=== PATIENT | male | born 1965 | race Native Hawaiian/Other Pacific Islander ===

== ENCOUNTER 2019-06-02 00:20 | Emergency (ER) | payer OTHER ==
[~2019-06-02] VITALS: Ht 170.2 cm; Wt 127.9 kg
[2019-06-02 00:20] VITALS: BP 99/64; TEMP 97.3
[2019-06-02 00:59] LABS: PLATELET COUNT 153 K/uL (142-355)
[2019-06-02 01:10] LABS: POTASSIUM 4.3 mmol/L (3.6-5.2)
[2019-06-02] MEDS ORDERED: ABILIFY20 MG PO (11:55)
[2019-06-02] MEDS ORDERED: ADULT ASPIRIN R81 MG PO (11:56)
[2019-06-02] MEDS ORDERED: MUPI2OIN2 TOP (11:56)
[2019-06-02] MEDS ORDERED: DIPH50CA30 PO (11:57)
[2019-06-02] MEDS ORDERED: CYCLOBENZAPRINE5 MG PO (11:58)
[2019-06-02] MEDS ORDERED: VENLAFAXINE75 M2 PO (11:59)
[2019-06-02] MEDS ORDERED: GABA400C2 PO (12:00)
[2019-06-02] MEDS ORDERED: CLON1TAB18 PO (12:01)
[2019-06-02] MEDS ORDERED: HYDR5TAB9 PO (12:01)
[2019-06-02] MEDS ORDERED: LIPITOR20 MG PO (12:02)
[2019-06-02] MEDS ORDERED: LEXAPRO20 MG PO (12:02)
[2019-06-02] MEDS ORDERED: MAGNSUS68 PO (12:03)
[2019-06-02] MEDS ORDERED: METOPROLOL25 M1 PO (12:04)
[2019-06-02] MEDS ORDERED: MUCINEX600 MG PO (12:05)
[2019-06-02] MEDS ORDERED: MYLANT3 PO (12:06)
[2019-06-02] MEDS ORDERED: PHENOBARB60 MG PO (12:07)
[2019-06-02] MEDS ORDERED: CLOP75TA2 PO (12:08)
[2019-06-02] MEDS ORDERED: PANTOPRAZOLE 40MG TA PO (12:09)
[2019-06-02] MEDS ORDERED: EFFER-K20 MEQ PO (12:09)
[2019-06-02] MEDS ORDERED: RISP2TAB2 PO (12:10)
[2019-06-02] MEDS ORDERED: SALINE NASAL0.65 % NAS (12:11)
[2019-06-02] MEDS ORDERED: SENOKOT8.6 MG PO (12:11)
[2019-06-02] MEDS ORDERED: LEVO0.0529 PO (12:13)
[2019-06-02] MEDS ORDERED: BENZONATATE100 MG PO (12:14)
[2019-06-02] MEDS ORDERED: [UNRECOGNIZED DRUG - OTHER] MT (12:14)
[2019-06-02] MEDS ORDERED: TRAZ50TA36 PO (12:15)
[2019-06-02] MEDS ORDERED: TYLENOL325 MG PO (12:16)
[2019-06-02] MEDS ORDERED: VIMPAT200 M1 PO (12:17)
[2019-06-02] MEDS ORDERED: WELLBUTRIN200 MG PO (12:18)
== END 2019-06-02 01:40 | disposition other institution (70) ==
LOC: ED 00:20
PROVIDERS: Family Medicine
DX: F22 Delusional disorders (principal); Z72.89 Other problems related to lifestyle; Z04.6 Encounter for general psychiatric examination, requested by authority
CPT/HCPCS: 36415; 80053; 81000; 85027; 93005; 99283; 99285

== ENCOUNTER 2019-06-07 13:39 | Observation (INO) | payer OTHER ==
[2019-06-07] VITALS (10 sets, daily range): BP systolic 114–158; BP diastolic 77–94; TEMP 97.5–98; Ht 170.2 cm; Wt 124.9 kg
[~2019-06-07] VITALS: Ht 170.2 cm; Wt 124.9 kg
[~2019-06-07 13:39] MED LIST: ABILIFY20 MG PO; ADULT ASPIRIN R81 MG PO; BENZONATATE100 MG PO; CLON1TAB18 PO; CLOP75TA2 PO; CYCLOBENZAPRINE5 MG PO; DIPH50CA30 PO; EFFER-K20 MEQ PO; GABA400C2 PO; HYDR5TAB9 PO; LEVO0.0529 PO; LEXAPRO20 MG PO; LIPITOR20 MG PO; MAGNSUS68 PO; METOPROLOL25 M1 PO; MUCINEX600 MG PO; MUPI2OIN2 TOP; MYLANT3 PO; PANTOPRAZOLE 40MG TA PO; PHENOBARB60 MG PO; RISP2TAB2 PO; SALINE NASAL0.65 % NAS; SENOKOT8.6 MG PO; TRAZ50TA36 PO; TYLENOL325 MG PO; VENLAFAXINE75 M2 PO; VIMPAT200 M1 PO; WELLBUTRIN200 MG PO; [UNRECOGNIZED DRUG - OTHER] MT
[2019-06-07 14:17] LABS: PLATELET COUNT 253 K/uL (142-355)
[2019-06-07 14:26] LABS: POTASSIUM 4.2 mmol/L (3.6-5.2); SODIUM 138 mmol/L (136-145)
[2019-06-07 16:48] LABS: PARTIAL THROMBOPLASTIN TIME 22.3 SECONDS (24.5-33.6)
[2019-06-07] MEDS ORDERED: NITR100C56 PO (21:27)
[2019-06-07] MEDS ORDERED: CLON1TAB18 PO (21:28)
[2019-06-07] MEDS ORDERED: DIVALPROEX500 MG PO (21:28)
[2019-06-07] MEDS ORDERED: FLUOXETINE20 MG PO (21:28)
[2019-06-07] MEDS ORDERED: CHOL100034 PO (21:29)
[2019-06-07] MEDS ORDERED: CLON0.5T36 PO (21:29)
[2019-06-07] MEDS ORDERED: ABILIFY MYCITE10 MG PO (21:30)
[2019-06-08] VITALS (15 sets, daily range): BP systolic 132–192; BP diastolic 71–90; TEMP 98.5–99.3
[2019-06-08 10:46] LABS: PLATELET COUNT 234 K/uL (142-355)
[2019-06-08] MEDS ORDERED: 904272561 PO (14:31)
[2019-06-11] MEDS ORDERED: 904272561 PO (08:48)
[2019-06-11] MEDS ORDERED: LITH300C3 PO (08:49)
[2019-06-11] MEDS ORDERED: FLUOXETINE20 MG PO (08:50)
[2019-06-11] MEDS ORDERED: GABA300C2 PO (08:50)
[2019-06-11] MEDS ORDERED: CLON1TAB18 PO (08:51)
[2019-06-11] MEDS ORDERED: CLON0.5T36 PO (08:51)
[2019-06-11] MEDS ORDERED: DIVALPROEX500 MG PO (08:51)
[2019-06-11] MEDS ORDERED: CYCL10TA35 PO (08:51)
[2019-06-11] MEDS ORDERED: CHOL100034 PO (08:52)
[2019-06-11] MEDS ORDERED: ABILIFY MYCITE10 MG PO (08:52)
[2019-06-11] MEDS ORDERED: PHEN30TA PO (08:54)
== END 2019-06-08 16:35 | disposition other institution (70) ==
LOC: ED 13:39 → ICU 15:20 → ED 15:20 → ICU 23:37
PROVIDERS: Internal Medicine; ADMIT Hospitalist
DX: R41.82 Altered mental status, unspecified (principal); G40.802 Other epilepsy, not intractable, without status epilepticus; I10 Essential (primary) hypertension; D72.828 Other elevated white blood cell count; R09.02 Hypoxemia
CPT/HCPCS: 36415; 36600; 51702; 80053; 80184; 81000; 82550; 82805; 83605; 83880; 84484; 85027; 85610; 85730; 87040; 87070; 87205; 87502; 93005; 94664; 94760; 96360; 96361; 96365; 96366; 96375; 99220; 99285; G0378; J0456; J1200; J1630; J1650; J1956; J2060; J2405; J3370; J3490

== ENCOUNTER 2019-06-15 02:14 | Inpatient (IN) | payer OTHER ==
[~2019-06-15] VITALS: Ht 170.2 cm; Wt 126.8 kg
[2019-06-15] VITALS (17 sets, daily range): BP systolic 82–113; BP diastolic 40–74; TEMP 96.5–98.4; Ht 170.2 cm; Wt 126.8 kg
[~2019-06-15 02:14] MED LIST changes: +904272561 PO; +ABILIFY MYCITE10 MG PO; +CHLO50TA22 PO; +CHOL100034 PO; +CLON0.5T36 PO; +CYCL10TA35 PO; +DIVA250T PO; +DIVALPROEX500 MG PO; +FLUOXETINE20 MG PO; +GABA300C2 PO; +HALO5INJ3 IM; +LACO200T PO; +LITH300C3 PO; +NITR100C56 PO; +PHEN30TA PO
[2019-06-15 03:24] LABS: PLATELET COUNT 163 K/uL (142-355)
[2019-06-15 03:36] LABS: POTASSIUM 4.2 mmol/L (3.6-5.2); SODIUM 136 mmol/L (136-145)
[2019-06-15] MEDS ORDERED: LIPITOR20 MG PO (05:49)
[2019-06-15] MEDS ORDERED: METO-837 PO (05:50)
[2019-06-15] MEDS ORDERED: MUPIROCIN21 EX (05:50)
[2019-06-15] MEDS ORDERED: LORAZEPAM2 MG/ML IV (05:57)
[2019-06-15 09:58] LABS: PARTIAL THROMBOPLASTIN TIME 21.5 SECONDS (24.5-33.6)
[2019-06-18] MEDS ORDERED: NITR100C56 PO (11:10)
[2019-06-18] MEDS ORDERED: LORA2INJ21 IM (11:10)
[2019-06-18] MEDS ORDERED: OLAN10INJ IM (11:10)
== END 2019-06-15 20:29 | disposition other institution (70) | DRG 204 ==
LOC: ICU 02:14
PROVIDERS: Emergency Medicine; ADMIT Family Medicine
PROC: 06HM33Z Insertion of Infusion Device into Right Femoral Vein, Percutaneous Approach (ICD-10-PCS; principal; 2019-06-15)
PROC: B54BZZA Ultrasonography of Right Lower Extremity Veins, Guidance (ICD-10-PCS; 2019-06-15)
DX: R06.03 Acute respiratory distress (principal); I87.8 Other specified disorders of veins; R06.89 Other abnormalities of breathing; E87.2 Acidosis; E66.01 Morbid (severe) obesity due to excess calories; J44.9 Chronic obstructive pulmonary disease, unspecified; E03.8 Other specified hypothyroidism; G40.802 Other epilepsy, not intractable, without status epilepticus; I10 Essential (primary) hypertension; I95.89 Other hypotension; N17.8 Other acute kidney failure; E11.42 Type 2 diabetes mellitus with diabetic polyneuropathy
CPT/HCPCS: 36416; 36600; 80053; 80164; 80178; 80307; 81000; 82550; 82553; 82805; 83605; 83880; 84443; 84484; 85027; 85610; 85730; 87040; 93005; 94660; 94760; J0744; J1200; J1630; J1644; J2060

== ENCOUNTER 2020-12-11 17:03 | Emergency (ER) | payer OTHER ==
[~2020-12-11] VITALS: Ht 170.2 cm; Wt 138.8 kg
[~2020-12-11 17:03] MED LIST changes: -ADULT ASPIRIN R81 MG PO; +ASPIRIN DR81 MG PO; +LORA2INJ21 IM; +LORAZEPAM2 MG/ML IV; +METO-837 PO; +MUPIROCIN21 EX; +OLAN10INJ IM
[2020-12-11 17:28] LABS: PLATELET COUNT 242 K/uL (142-355)
[2020-12-11 17:35] LABS: POTASSIUM 4.8 mmol/L (3.6-5.2)
[2020-12-11 19:05] VITALS: BP 134/60; TEMP 98.8
[2020-12-11] MEDS ORDERED: CLARITIN10 M1 PO (21:34)
[2020-12-11] MEDS ORDERED: CLONIDINE HYDR0.1 M2 PO (21:36)
[2020-12-11] MEDS ORDERED: FURO40TA93 PO (21:37)
[2020-12-11] MEDS ORDERED: MELATONIN5 M2 PO (21:38)
[2020-12-11] MEDS ORDERED: PEPCID20 MG PO (21:39)
[2020-12-11] MEDS ORDERED: PRAZOSIN HYDROCH1 MG PO (21:41)
[2020-12-11] MEDS ORDERED: ZOLOFT25 MG PO (21:42)
[2020-12-11] MEDS ORDERED: SERT50TA PO (21:43)
[2020-12-11] MEDS ORDERED: MONT10TA PO (21:44)
[2020-12-11] MEDS ORDERED: BUSPIRONE HYDROC5 MG PO (21:45)
[2020-12-11] MEDS ORDERED: CIPR500T PO ×2 (21:56→21:57)
[2020-12-11] MEDS ORDERED: HALO1TAB3 PO (21:58)
[2020-12-11] MEDS ORDERED: TYLENOL325 MG PO (22:00)
[2020-12-11] MEDS ORDERED: TRAMADOL HYDROC50 MG PO (22:01)
[2020-12-11] MEDS ORDERED: DOCU100C10 PO (22:06)
[2020-12-11] MEDS ORDERED: HALO5INJ3 IM (22:08)
[2020-12-11] MEDS ORDERED: HYDROXYZINE HYD25 MG PO (22:09)
[2020-12-11] MEDS ORDERED: MAG-AL PLUS PO (22:11)
[2020-12-11] MEDS ORDERED: MILK OF MA400 MG/5 M PO (22:12)
[2020-12-11] MEDS ORDERED: ONDA4TAB3 PO (22:19)
[2020-12-11] MEDS ORDERED: HYDR-3182 PO (23:02)
== END 2020-12-11 19:05 | disposition other institution (70) ==
LOC: ED 17:03
PROVIDERS: Family Medicine
DX: R46.89 Other symptoms and signs involving appearance and behavior (principal); Z11.52 Encounter for screening for COVID-19; Z04.6 Encounter for general psychiatric examination, requested by authority
CPT/HCPCS: 80053; 81000; 85027; 87077; 87086; 87088; 87186; 87635; 93005; 99283; U0003